=== PATIENT | female | born 1940 | race Caucasian/White ===

== ENCOUNTER 2016-12-26 07:49 | Emergency (ER) | payer OTHER ==
[~2016-12-26] VITALS: Wt 52.0 kg
[~2016-12-26 07:49] MED LIST: AMLO5TAB4 PO; CARI350T PO; MINE30LO TP; NAPR-260 PO
[2016-12-26] MEDS ORDERED: KETOROLAC 30 MG INJ IM STA (08:10)
--- NOTE | 2016-12-26 08:24 | ERD ---
ER Documentation Chief Complaint Date/Time DATE: 12/26/16 TIME: 08:18 Chief Complaint right upper arm and shoulder pain non traumatic for 3 days. HPI This patient is a 68-year-old female with history of hypertension and hypothyroidism presenting to the emergency department for right arm and shoulder pain which is been ongoing for the past 3 days. The patient rates the pain a 7 out of 10 and throbbing in nature. She took ibuprofen at home with only mild relief of her symptoms. Patient denies any chest pain, shortness of breath, injury or trauma, nausea, vomiting, diarrhea, or other symptoms. ROS All systems reviewed and are negative except as per history of present illness. Medications Home Meds Active Scripts Naproxen* (Naprosyn*) 500 Mg Tablet, 500 MG PO BID Y for PAIN AND/OR INFLAMMATION, #20 TAB Prov:TAMMIE ZELAYA PA-C 12/26/16 Reported Medications Amlodipine Besylate* (Norvasc*) 5 Mg Tablet, 5 MG PO DAILY 12/20/11 Allergies Allergies: Coded Allergies: Penicillins (Verified Allergy, 12/20/11) PMhx/Soc History of Surgery: No Anesthesia Reaction: No Hx Neurological Disorder: No Hx Respiratory Disorders: No Hx Cardiac Disorders: Yes (HTN) Hx Psychiatric Problems: No Hx Miscellaneous Medical Probl: No Hx Alcohol Use: No Hx Substance Use: No Hx Tobacco Use: No FmHx Noncontributory for chief complaint Physical Exam Vitals Vital Signs Date Time Temp Pulse Resp B/P Pulse Ox O2 Delivery O2 Flow Rate FiO2 12/26/16 07:52 98.5 84 21 174/74 98 Physical Exam INITIAL VITAL SIGNS: Reviewed by me. GENERAL: Alert and interactive. No acute distress. HEAD: Head is normocephalic and atraumatic. EYES: EOMI. No scleral icterus. No conjunctival injection. ENT: Moist mucosa. NECK: Supple. Full range of motion. RESPIRATORY: Normal respiratory effort. Clear breath sounds bilaterally. No wheezing, rales, or rhonchi. CV: Regular rate and rhythm. Normal S1 S2. No S3 or S4. No murmurs. ABDOMEN: Soft, non-distended, non-tender. No guarding. No rebound. No masses. EXTREMITIES: The patient has diffuse tenderness to palpation of the right shoulder and right upper extremity. Patient has full range of motion of the right upper extremity. All other extremities are normal on exam. SKIN: Warm and dry. NEUROLOGIC: Alert and oriented x 4. Speech is normal. Moves all extremities equally. No motor or sensory deficits noted. Results 24 hrs Current Medications Medications (Trade) Dose Ordered Sig/Ariana Route PRN Reason Start Time Stop Time Status Last Admin Dose Admin Ketorolac Tromethamine (Toradol) 30 mg ONCE STAT IM 12/26/16 08:10 12/26/16 08:11 DC 12/26/16 08:24 Procedures/MDM 68-year-old female presents secondary to complaints of right shoulder and right arm pain. Physical examination the patient has full range of motion of the right upper extremity. She does have diffuse tenderness to palpation of the right shoulder and right arm. I have ordered an EKG looking for any signs of acute ischemia or other cardiac abnormalities. I have ordered an x-ray of the right shoulder or right arm. At this point I suspect arthritic changes but no fractures. The patient was given 30 mg IM Toradol in the department and was feeling improved on reevaluation. EKG: Interpreted by ED physician Rate/Rhythm: Normal sinus rhythm with a rate of 86 bpm. QRS, ST, T-waves: No changes consistent w/ acute ischemia Impression: No evidence of ischemia or arrhythmia PROCEDURE: X-ray right humerus CLINICAL INDICATION: Shoulder pain TECHNIQUE: Two views of the right humerus are available for interpretation. COMPARISON: None FINDINGS: There is no acute fracture. There is a focus of cortical thinning within the lateral mid humeral diaphysis but no bony destructive changes or periosteal reaction is noted. The soft tissues around the right humerus are unremarkable. RPTAT: AA IMPRESSION: No acute bony abnormality. Cortical thinning within the mid humeral diaphysis without an aggressive appearing bone lesion or periosteal reaction. There is continued pain in this region, a follow-up MRI may be obtained for additional evaluation. PROCEDURE: XR right Shoulder. CLINICAL INDICATION: Pain TECHNIQUE: Two views of the right shoulder are available for review. COMPARISON: None available FINDINGS: There is no acute fracture or dislocation. The glenohumeral and acromioclavicular joints are intact. There is mild joint space narrowing with osseous spurring within the acromioclavicular joint. Mild osseous spurring is also present within the greater tuberosity of the humeral head. The acromion is slightly curved in morphology with slight lateral downsloping. The soft tissues around the right shoulder are unremarkable. There is no acute fracture of the visualized right ribs. The visualized right lung is clear. RPTAT: ZZ IMPRESSION: 1. No acute bony abnormality. 2. 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 3. Mild osseous spurring at the greater tuberosity of the humeral head which can be seen with rotator cuff tendinopathy. Patient is stable for discharge at this time. She has no fractures visualized on imaging. The patient understands the plan of diagnosis. Patient will be given a prescription for acute pain management at home. The patient agrees with the diagnosis and her questions and concerns were addressed. Departure Diagnosis: Primary Impression: Arm pain Additional Impression: Shoulder pain Condition: Stable Patient Instructions: Back Exercises: Arm Reach, Shoulder Pain (Uncertain Cause ) Additional Instructions: No mas mejor en 2-3 de la torre, regresar. Mas peor en 24 horas, regresear rapidamente. Ir a doctor primario in 5-7 de la torre. Usar instrucciones cuando josé manuel medicamento. TAMMIE ZELAYA PA-C Dec 26, 2016 08:24
--- NOTE | 2016-12-26 08:53 | RADRPT ---
PROCEDURE: XR right Shoulder. CLINICAL INDICATION: Pain TECHNIQUE: Two views of the right shoulder are available for review. COMPARISON: None available FINDINGS: There is no acute fracture or dislocation. The glenohumeral and acromioclavicular joints are intact . There is mild joint space narrowing with osseous spurring within the acromioclavicular joint. Mi ld osseous spurring is also present within the greater tuberosity of the humeral head. The acromion is slightly curved in morphology with slight lateral downsloping. The soft tissues around the right shoulder are unremarkable. There is no acute fracture of the visualized right ribs. The visualized right lung is clear. RPTAT: ZZ IMPRESSION: 1. No acute bony abnormality. 2. 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 3. Mild osseous spurring at the greater tuberosity of the humeral head which can be seen with rotat or cuff tendinopathy. .Germania Michele MD, MD Date Time Electronically viewed and signed by .Germania Michele MD, on 12/26/2016 08:53 .T/
--- NOTE | 2016-12-26 08:59 | RADRPT ---
PROCEDURE: X-ray right humerus CLINICAL INDICATION: Shoulder pain TECHNIQUE: Two views of the right humerus are available for interpretation. COMPARISON: None FINDINGS: There is no acute fracture. There is a focus of cortical thinning within the lateral mid humeral di aphysis but no bony destructive changes or periosteal reaction is noted. The soft tissues around th e right humerus are unremarkable. RPTAT: AA IMPRESSION: No acute bony abnormality. Cortical thinning within the mid humeral diaphysis without an aggressive appearing bone lesion or pe riosteal reaction. There is continued pain in this region, a follow-up MRI may be obtained for additional evaluation. .Germania Michele MD, MD Date Time Electronically viewed and signed by .Germania Michele MD, on 12/26/2016 08:59 .T/
[2016-12-26] MEDS ORDERED: NAPR-260 PO (09:09)
== END 2016-12-26 09:27 | disposition home or self-care (01) ==
LOC: FTE 07:49
DX: M79.601 Pain in right arm (principal); M25.511 Pain in right shoulder; I10 Essential (primary) hypertension; E03.9 Hypothyroidism, unspecified
CPT/HCPCS: 73030; 73060; J1885; 93005; 96372